=== PATIENT | male | born 1975 | race Two or more races ===

== ENCOUNTER 2025-08-18 00:49 | Emergency (ER) | payer OTHER ==
[~2025-08-18] VITALS: Ht 170.2 cm; Wt 74.8 kg
[2025-08-18 01:11] VITALS: BP 115/74; O2SAT 99
[2025-08-18] MEDS ORDERED: MECLIZINE HCL 25 MG TABLET PO STA (02:05)
[2025-08-18] MEDS ORDERED: KETOROLAC TROMETHAMINE 30 MG VIAL IV STA (02:06)
[2025-08-18] MEDS ORDERED: MECLIZINE HCL 25 MG TABLET PO ONE (02:32)
[2025-08-18] MEDS ORDERED: KETOROLAC TROMETHAMINE 30 MG VIAL ONE (02:32)
[2025-08-18 03:17] LABS: BASO % 0.3 % (0.1-1.2); EOS # 0.28 (0.04-0.54); EOS % 4.1 % (0.7-7.0); LYMPH # 2.43 (1.18-3.74); LYMPH % 35.9 % (19.3-53.1); MEAN PLATELET VOLUME 9.10 fl (9.4-12.4); MONO # 0.77 (0.24-0.82); MONO % 11.4 % (4.7-12.5); NEUT # 3.24 (1.56-6.13); NEUT % 48.0 % (34.0-71.1); RED CELL DISTRIBUTION WIDTH 14.6 % (11.6-14.4)
[2025-08-18 03:37] LABS: BUN CREA RATIO 24.0 (7.0-25.0); CREATININE SERUM 0.92 mg/dL (0.70-1.30); GFR 88.18; GLUCOSE FASTING 96.0 mg/dL (65-100); OSMOLALITY SERUM 290.0 MOSM/KG (275-295)
[2025-08-18 03:41] LABS: COVID-19 AG NEGATIVE (NEGATIVE)
[2025-08-18] MEDS ORDERED: PROTONIX40 MG PO (05:37)
[2025-08-18] MEDS ORDERED: MECLIZINE HCL25 MG PO (05:37)
[2025-08-18] MEDS ORDERED: ORASEP SPRAY30 ML MM (05:39)
== END 2025-08-18 06:00 ==
LOC: ER 00:49
PROVIDERS: General Practice
DX: K21.9 Gastro-esophageal reflux disease without esophagitis (principal); R42 Dizziness and giddiness; J02.9 Acute pharyngitis, unspecified; Z20.822 Contact with and (suspected) exposure to COVID-19